=== PATIENT | male | born 1950 | race Caucasian/White ===

== ENCOUNTER 2016-08-02 08:17 | Emergency (ER) | payer OTHER ==
[~2016-08-02] VITALS: Ht 185.4 cm; Wt 108.0 kg
--- NOTE | 2016-08-02 08:32 | ED DYSPNEA/ASTHMA COMPLAINT ---
History of Present Illness General Chief Complaint: Dyspnea (COPD, CHF, Other) Stated Complaint: BIBA RESPIRATORY DISTRESS Source: family, old records, EMS Exam Limitations: unable to give history, clinical condition Vital Signs & Intake/Output Vital Signs & Intake/Output Vital Signs Date Time Temp Pulse Resp B/P B/P Pulse O2 O2 Flow FiO2 Mean Ox Delivery Rate 08/02 1100 87 98 08/02 1045 93 34 166/82 99 BIPAP 60% 08/02 1005 90 96 08/02 0900 95 44 139/98 98 BIPAP 70% 08/02 0840 101 98 08/02 0837 70 BIPAP 100% 08/02 0835 98 BIPAP 100% 08/02 0825 110 98 08/02 0824 95.7 103 30 126/78 96 BIPAP Allergies Coded Allergies: No Known Allergies (08/02/16) Reconcile Medications Amiodarone HCl 200 MG TABLET 1 TAB PO DAILY HEART (Reported) Aspirin (Aspirin*) 81 MG TAB.CHEW 1 TAB PO DAILY HEART HEALTH (Reported) Atorvastatin Calcium 40 MG TABLET 1 TAB PO DAILY CHOLESTEROL (Reported) Clopidogrel Bisulfate (Plavix) 75 MG TABLET 1 TAB PO DAILY BLOOD THINNER ( Reported) Ferrous Sulfate 325 MG (65 MG IRON) TABLET 1 TAB PO TID SUPPLMENT (Reported) Folic Acid 0.4 MG TABLET 1 TAB PO DAILY SUPPLEMENT (Reported) Glyburide/Metformin HCl (Glucovance 5-500 MG Tablet) 5 MG-500 MG TABLET 1 TAB PO BID DM (Reported) Hydrocodone/Acetaminophen ([place] 5-325 Tablet) 5 MG-325 MG TABLET 1 TAB PO Q6- PRN PRN PAIN (Reported) Lisinopril 40 MG TABLET 1 TAB PO DAILY HEART (Reported) Nadolol 20 MG TABLET 1 TAB PO DAILY HEART (Reported) [place]-3/Dha/Epa/Fish Oil (Fish Oil 1,000 MG Softgel) 1,000 MG (120 MG-180 MG) CAPSULE 1 CAP PO DAILY SUPPLEMENT (Reported) Pantoprazole Sodium 40 MG TABLET.DR 1 TAB PO DAILY GI (Reported) Triage Nurses Notes Reviewed? yes HPI: Patient presents for severe and sudden onset of shortness of breath that began this morning. The patient himself is unable to provide history and history is obtained via EMS and his . She states that this morning he began screaming that he couldn't breathe. He has past history of coronary artery disease with relatively recent stenting. Past History Travel History Traveled to [place] past 21 day No Medical History Any Pertinent Medical History? see below for history Neurological: NONE EENT: NONE Cardiovascular: CHF, hypertension, AR WITH 4 STENTS HIGH CHOLESTEROL Respiratory: NONE Gastrointestinal: GERD, PANCREATIC CANCER Hepatic: NONE Renal: NONE Musculoskeletal: NONE Psychiatric: NONE Endocrine: NONE Blood Disorders: "INTERNAL BLEEDING" PER SPOUSE Cancer(s): pancreatic cancer Surgical History Surgical History: CARDIAC STENT Psychosocial History What is your primary language Nepalese Tobacco Use: Quit >30 days ago Family History Hx Contributory? No Review of Systems Review of Systems Constitutional: Reports: no symptoms. EENTM: Reports: no symptoms. Respiratory: Reports: see HPI. Cardiovascular: Reports: no symptoms. GI: Reports: no symptoms. Genitourinary: Reports: no symptoms. Musculoskeletal: Reports: no symptoms. Skin: Reports: no symptoms. Neurological/Psychological: Reports: no symptoms. Hematologic/Endocrine: Reports: no symptoms. Immunologic/Allergic: Reports: no symptoms. All Other Systems: Reviewed and Negative Comments ROS PER , PT UNABLE TO PROVIDE Physical Exam Physical Exam Respiratory: SEE BELOW Comments: Gen.: Well-nourished, well-developed, severe respiratory distress. Head: Normocephalic, atraumatic. Eyes: Normal inspection bilaterally Ears: Normal inspection bilaterally Nose: Normal inspection Throat/mouth : Moist mucosa Neck: Supple, full range of motion, no goiter,no jvd Heart: Regular rate and rhythm, no murmurs rubs or gallops Lungs: Diminished breath sounds bilaterally with no wheezes rales or rhonchi Chest: Nontender, poor chest excursion Abdomen: Soft, nondistended Extremities: Normal range of motion grossly, equal radial pulses, no cyanosis, mild pretibial pitting edema bilaterally Neurologic: Cranial nerves grossly intact, patient essentially not focally communicative Skin: Cool and slightly diaphoretic Psychiatric: Unable to assess Core Measures ACS in differential dx? Yes Severe Sepsis Present: No Septic Shock Present: No Progress Differential Diagnosis: AMI, bronchitis, CHF, COPD, pneumonia, pneumothorax, unstable angina Plan of Care: Orders Procedure Date/time Status LACTIC ACID 08/02 1132 Active BIPAP 08/02 1100 Complete EKG 08/02 1040 Active EKG 08/02 1015 Active BIPAP 08/02 1005 Complete OXYGEN SETUP (GEN) 08/02 0955 Complete Add-on Test (ER Only) 08/02 0954 Active Admit to inpatient 08/02 0944 Active Add-on Test (ER Only) 08/02 0914 Active ARTERIAL BLOOD GAS (GEN) 08/02 0850 Complete Telemetry/Top Closer 08/02 0849 Active BIPAP 08/02 0840 Complete AEROSOL (GEN) 08/02 0835 Complete SERUM OSMOLALITY 08/02 0833 Complete B-TYPE NATRIURETIC PEP (BNP) 08/02 0833 Complete ACETONE 08/02 0833 Complete TROPONIN LEVEL 08/02 0832 Complete PARTIAL THROMBOPLASTIN TIME 08/02 0832 Complete PROTHROMBIN TIME 08/02 0832 Complete MAGNESIUM 08/02 0832 Complete LACTIC ACID 08/02 0832 Complete COMPREHENSIVE METABOLIC PANEL 08/02 0832 Complete CBC WITHOUT DIFFERENTIAL 08/03 0732 Complete EKG 08/03 0732 Active BIPAP 08/02 0825 Complete Current Medications Sig/Leonie Start time Last Medication Dose Stop Time Status Admin Aspirin 81 MG ONCE ONE 08/02 1130 UNVr (Aspirin) 08/02 113 Metoprolol Tartrate 2.5 MG ONCE ONE 08/02 1130 UNVr (Lopressor) 08/02 1131 Laboratory Tests 08/02/16 0850: pH 7.22 *L, pCO2 42, pO2 112 H, HCO3 18 L, ABG O2 Sat (Measured) 97.0, Carboxyhemoglobin 0.4 L, O2 Concentration % 70%, Respiration Rate 20, O2 Delivery Method VISION, Vent Mode ST, Expiratory Pressure 6, Inspiratory Pressure 16, Phlebotomy Draw Site RIGHT RADIAL 08/02/16 0849: Bym-Z-Esbfpvycndc Pept Cancelled 08/02/16 0833: Anion Gap 19 H, Estimated GFR > 60, BUN/Creatinine Ratio 16.0, Glucose 286 H, Serum Osmolality 313 H, Lactic Acid 4.9 H, Calcium 9.2, Magnesium 2.1, Total Bilirubin 0.8, AST 22, ALT 21, Alkaline Phosphatase 68, Troponin I 0.02, Pro-B- Natriuretic Pept 3850 H, Total Protein 7.7, Albumin 4.0, Globulin 3.7, Albumin/ Globulin Ratio 1.1, PT 12.8 H, INR 1.22 H, APTT 29, CBC w Diff MAN DIFF ORDERED, RBC 4.58 L, MCV 78.2 L, MCH 24.1 L, RDW 19.8 H, MPV 8.8, Gran % 43.2, Lymphocytes % 44.9, Monocytes % 8.6, Eosinophils % 2.7, Basophils % 0.6, Absolute Granulocytes 6.1, Absolute Lymphocytes 6.3 H, Absolute Monocytes 1.2 H, Absolute Eosinophils 0.4, Absolute Basophils 0.1, Platelet Estimate ADEQUATE, Polychromasia 1+, Hypochromic-Microcytic 2+, Poikilocytosis 3+, Anisocytosis 3+, Microcytic Cells 1+, Ovalocytes 1+, Elliptocytes 2+, Schistocytes , PUBS MCHC 30.8 L, Acetone Level NEGATIVE Diagnostic Imaging: Viewed by Me: Radiology Read. Discussed w/RAD: Radiology Read. CXR Impression: PATIENT: ZIA GILL PRESENT AGE: 65 PATIENT ACCOUNT NO: [id number] : 52 LOCATION: [facility] ORDERING PHYSICIAN: JUSTIN DONOVAN MD SERVICE DATE: 08/02/16 EXAM TYPE: RAD - XRY-PORTABLE CHEST XRAY EXAMINATION: XR PORTABLE CHEST CLINICAL INFORMATION: Shortness of breath. Low oxygen saturation. COMPARISON: None TECHNIQUE: Portable AP view of the chest was obtained. FINDINGS: Cardiomegaly, pulmonary vascular congestion and thickened peribronchial interstitium -- likely edema of the axial interstitium. Small left pleural effusion and left basilar atelectasis. A trace right pleural effusion is suspected, as well. No pneumothorax. The visualized bones are intact. IMPRESSION: Cardiomegaly and congestive heart failure. DICTATED BY: FRANCISCA MCDONOUGH MD DATE/TIME DICTATED:08/02/16901 SOFTBALL UMPIRE:MILLICENT DATE/TIME TRANSCRIBED:08/02/16901 CONFIDENTIAL, DO NOT COPY WITHOUT APPROPRIATE AUTHORIZATION. <Electronically signed in Other Vendor System> SIGNED BY: FRANCISCA MCDONOUGH MD 08/02/16905 Initial ED EKG: NSR, ST elevation (ANTERIORLY) Prior EKG: changed (C/W 2007) Comments: 08/02/2016 8:32:00 AM patient has been placed on BiPAP with improvement in oxygen saturations and chest excursion. He is becoming more alert. Oxygen saturation 95% on BiPAP. 08/02/2016 8:50:20 AM patient's EKG shows ST segment elevations anteriorly but the EKG is of poor quality due to the patient's respiratory distress. Prior EKG does not show similar changes but this EKG is from 2007. I've spoken to Dr. Collins about this patient's case will be in to the emergency department momentarily to evaluate him. 08/02/2016 8:58:43 AM Zia is now to be indicative and denies chest pain either now or during his episode of dyspnea. I suspect the EKG changes we are seeing a reflection of a bundle branch pattern more than an acute AR. 08/02/2016 9:13:50 AM patient is being evaluated by Dr. Collins. 08/02/2016 9:32:03 AM patient's case discussed with the hospitalist. Patient to be admitted. 08/02/2016 10:32:04 AM the patient is being evaluated by the house staff. Repeat EKG was obtained given the noisy baseline initially. The patient has ST segment elevations across the precordial leads along with multiple PVCs, I have discussed this with Dr. Collins who will return to the emergency department momentarily to reevaluate. 08/02/2016 11:17:37 AM we are making arrangements for Zia to be transferred to the [facility] cardiac catheterization suite. The change in his EKG here in the emergency department is very concerning for an ST segment elevation AR. Patient remains stable clinically. Departure Departure Disposition: STILL A PATIENT Condition: Stable Clinical Impression Primary Impression: AMI (acute myocardial infarction) Qualifiers: Myocardial infarction ST status: ST elevation myocardial infarction Involved coronary artery: unspecified coronary artery Qualified Code: I21.3 - ST elevation (STEMI) myocardial infarction of unspecified site Secondary Impressions: CHF (congestive heart failure) Qualifiers: Congestive heart failure type: unspecified congestive heart failure type Congestive heart failure chronicity: acute Qualified Code: I50.9 - Heart failure, unspecified Metabolic acidosis Respiratory failure Qualifiers: Chronicity: acute Respiratory failure complication: hypoxia Qualified Code: J96.01 - Acute respiratory failure with hypoxia Referrals: MARIA DE JESUS ADAIR,GEORGETTE Uribe (PCP/Family) Departure Forms: Customer Survey General Discharge Information Admission Note Spoke With: REA PATHAK MD Documentation of Exam: Documentation of any treatments & extenuating circumstances including Concerns Regarding Discharge (functional status, medication knowledge or non-compliance, living conditions, etc.) that warrant an admission rather than observation: Patient presented in severe respiratory distress and was nearly intubated. He has improved with high-level oxygen supplementation and BiPAP respiratory support. He has a complicated past medical history with a recent myocardial infarction and cardiac stent placement. In addition to his respiratory failure, he has a metabolic acidosis and hyperglycemia. Although he has improved he is still critically ill and requires hospitalization. He will need continued oxygen supplementation to maintain normal oxygen saturations, BiPAP to augment his respiratory effort and ventilation and serial troponin determinations to rule out acute myocardial infarction or demand ischemia. Intake and output and daily weights should be recorded in the patient should be kept in a negative fluid balance. Cardiology consultation should also be obtained given his complex cardiac history. I feel he will require a multiple day hospitalization. Critical Care Note Critical Care Note Critical Care Time: 75-104 min
[2016-08-02 08:42] LABS: ABSOLUTE BASOPHIL COUNT 0.1 /CUMM (0.0-0.2); ABSOLUTE EOSINOPHIL COUNT 0.4 /CUMM (0.0-0.7); ABSOLUTE GRANULOCYTE CT 6.1 /CUMM (1.4-6.5); ABSOLUTE LYMPH COUNT 6.3 /CUMM (1.2-3.4); ABSOLUTE MONOCYTE COUNT 1.2 /CUMM (0.10-0.60); RBC DISTRIBUTION WIDTH 19.8 % (11.5-14.5); WHITE BLOOD CELL COUNT 14.1 /CUMM (4.8-10.8)
[2016-08-02 08:46] LABS: BASOPHIL % 0.6 % (0.0-2.0); EOSINOPHIL % 2.7 % (0-5); GRANULOCYTE % 43.2 % (42.2-75.2); HEMATOCRIT 35.8 % (42-52); MEAN CORPUSCULAR HGB 24.1 PG (27.0-31.0); MEAN CORPUSCULAR HGB CONC 30.8 G/DL (33.0-37.0); MEAN CORPUSCULAR VOLUME 78.2 FL (80.0-94.0); MEAN PLATELET VOLUME 8.8 FL (7.4-10.4); PLATELET COUNT 346 /CUMM (130-400); RED BLOOD CELL CT 4.58 /CUMM (4.70-6.10)
[2016-08-02 08:59] LABS: PT 12.8 SEC (9.4-12.5); PTT 29 SEC (25-37)
--- NOTE | 2016-08-02 09:06 | RADIOLOGY REPORT ---
EXAMINATION: XR PORTABLE CHEST CLINICAL INFORMATION: Shortness of breath. Low oxygen saturation. COMPARISON: None TECHNIQUE: Portable AP view of the chest was obtained. FINDINGS: Cardiomegaly, pulmonary vascular congestion and thickened peribronchial interstitium -- likely edema of the axial interstitium. Small left pleural effusion and left basilar atelectasis. A trace right pleural effusion is suspected, as well. No pneumothorax. The visualized bones are intact. IMPRESSION: Cardiomegaly and congestive heart failure.
[2016-08-02] MEDS ORDERED: ASPIRIN81 M4 PO (09:36)
[2016-08-02] MEDS ORDERED: AMIODARONE HCL200 M1 PO (09:36)
[2016-08-02] MEDS ORDERED: PLAVIX75 M1 PO (09:37)
[2016-08-02] MEDS ORDERED: ATORVASTATIN CA40 M1 PO (09:37)
[2016-08-02] MEDS ORDERED: FERROUS SULFAT325 M3 PO (09:38)
[2016-08-02] MEDS ORDERED: FISH OIL 1,001000 MG PO (09:38)
[2016-08-02] MEDS ORDERED: FOLIC ACID0.4 M1 PO (09:39)
[2016-08-02] MEDS ORDERED: GLUCOVANCE 5-51 EACH PO (09:39)
[2016-08-02] MEDS ORDERED: NORCO 5-325 TA1 EACH PO (09:40)
[2016-08-02] MEDS ORDERED: LISINOPRIL40 M1 PO (09:41)
[2016-08-02] MEDS ORDERED: NADOLOL20 M1 PO (09:42)
[2016-08-02] MEDS ORDERED: PANTOPRAZOLE SO40 M1 PO (09:42)
--- NOTE | 2016-08-02 11:25 | Cons- Cardiology ---
General Information and HPI Consulting Request Date of Consult: 08/02/16 Requested By: Dr. Shahid Reason for Consult: Myocardial infarction History of Present Illness: The patient is a 65-year-old male with history of CAD, status post anterior wall myocardial infarction 3 weeks ago at [facility], ischemic cardiomyopathy, pancreatic mass, and GI bleed presenting with respiratory distress. He was recently discharged from [facility], and was feeling well until this morning when he woke up in respiratory distress. EMS was called. He was brought to [facility] because he was felt to be too unstable to be taken to [facility]. BiPAP was initiated with partial improvement in his respiratory distress. He denies any chest pain. Initial EKG showed only mild ST elevation which was felt to be residual from his recent myocardial infarction. Repeat EKG showed much more prominent ST elevation in the anterior leads. Initial troponin was negative. He continues to be severely short of breath, however towards of breath is much improved from his presentation. He continues to deny any chest discomfort. Allergies/Medications Allergies: Coded Allergies: No Known Allergies (08/02/16) Home Med List: Amiodarone HCl 200 MG TABLET 1 TAB PO DAILY HEART (Reported) Aspirin (Aspirin*) 81 MG TAB.CHEW 1 TAB PO DAILY HEART HEALTH (Reported) Atorvastatin Calcium 40 MG TABLET 1 TAB PO DAILY CHOLESTEROL (Reported) Clopidogrel Bisulfate (Plavix) 75 MG TABLET 1 TAB PO DAILY BLOOD THINNER ( Reported) Ferrous Sulfate 325 MG (65 MG IRON) TABLET 1 TAB PO TID SUPPLMENT (Reported) Folic Acid 0.4 MG TABLET 1 TAB PO DAILY SUPPLEMENT (Reported) Glyburide/Metformin HCl (Glucovance 5-500 MG Tablet) 5 MG-500 MG TABLET 1 TAB PO BID DM (Reported) Hydrocodone/Acetaminophen ([place] 5-325 Tablet) 5 MG-325 MG TABLET 1 TAB PO Q6- PRN PRN PAIN (Reported) Lisinopril 40 MG TABLET 1 TAB PO DAILY HEART (Reported) Nadolol 20 MG TABLET 1 TAB PO DAILY HEART (Reported) [place]-3/Dha/Epa/Fish Oil (Fish Oil 1,000 MG Softgel) 1,000 MG (120 MG-180 MG) CAPSULE 1 CAP PO DAILY SUPPLEMENT (Reported) Pantoprazole Sodium 40 MG TABLET.DR 1 TAB PO DAILY GI (Reported) Current Medications: Current Medications Sig/Leonie Start time Last Medication Dose Route Stop Time Status Admin Albuterol Sulfate 3 ML ONCE ONE 08/02 0845 DC 08/02 INH 08/02 0846 0835 Aspirin 81 MG ONCE ONE 08/02 1130 UNVr PO 08/02 1131 Furosemide 40 MG ONCE ONE 08/02 1015 DC 08/02 IV 08/02 1016 1018 Furosemide 0 .STK-MED ONE 08/02 1014 DC IV Ipratropium [place] 2.5 ML ONCE ONE 08/02 0845 DC 08/02 INH 08/02 0846 0835 Metoprolol Tartrate 2.5 MG ONCE ONE 08/02 1130 UNVr IV 08/02 1131 Review of Systems Review of Systems: No fever. No chills. No rash. No tremor. All other systems were reviewed, and were noted to be negative. Past History Travel History Traveled to [place] past 21 day No Medical History Neurological: NONE EENT: NONE Cardiovascular: CHF, hypertension, IN WITH 4 STENTS HIGH CHOLESTEROL Respiratory: NONE Gastrointestinal: GERD, PANCREATIC CANCER Hepatic: NONE Renal: NONE Musculoskeletal: NONE Psychiatric: NONE Endocrine: NONE Blood Disorders: "INTERNAL BLEEDING" PER SPOUSE Cancer(s): pancreatic cancer Surgical History Surgical History: CARDIAC STENT Family History Family History Reviewed? Family history was reviewed with the patient and there are no factors continuing to the current presentation. Exam & Diagnostic Data Vital Signs and I&O Vital Signs Date Time Temp Pulse Resp B/P B/P Pulse O2 O2 Flow FiO2 Mean Ox Delivery Rate 08/02 1100 87 98 08/02 1045 93 34 166/82 99 BIPAP 60% 08/02 1005 90 96 08/02 0900 95 44 139/98 98 BIPAP 70% 08/02 0840 101 98 08/02 0837 70 BIPAP 100% 08/02 0835 98 BIPAP 100% 08/02 0825 110 98 08/02 0824 95.7 103 30 126/78 96 BIPAP Intake & Output 08/02 1600 08/02 0800 08/02 0000 08/01 1600 08/01 0800 08/01 0000 Intake Total Output Total Balance Patient 238 lb Weight Weight Reported by Patient Measurement Method Physical Exam: Gen: The patient is in no acute distress HEENT: Normal nose, ears, and oropharynx. Pupils equal bilaterally. Conjunctiva normal. Neck: Supple with no JVD, no masses, and no thyromegaly Lungs: Bilateral rales with increased respiratory effort Heart: RRR, S1, S2, 1/6 systolic murmur. 1-2+ peripheral edema, 2+ pulses in the lower extremities bilaterally Abdomen: Soft, nontender, no masses. No hepatomegaly. No splenomegaly Extremities: No clubbing or cyanosis. Normal muscle strength in the upper and lower extremities Skin: Normal skin turgor with no skin ulcers or lesions noted. Neuro: Cranial nerves intact. Sensation intact Psych: Alert and oriented 3 with appropriate affect Labs/Alec Results: Laboratory Tests 08/02 08/02 0850 0849 Blood Gas pH (7.35 - 7.45 PH) 7.22 *L pCO2 (35 - 45 TORR) 42 pO2 (80 - 100 TORR) 112 H HCO3 (21 - 28 MEQ/L) 18 L ABG O2 Sat (Measured) (>96.0 %) 97.0 Carboxyhemoglobin (1.5 - 5.0 %) 0.4 L O2 Concentration % 70% Respiration Rate (BPM) 20 O2 Delivery Method VISION Vent Mode ST Expiratory Pressure (CM H2O P) 6 Inspiratory Pressure (CM H2O P) 16 Chemistry Tin-K-Jzumbroffhz Pept Cancelled Miscellaneous Phlebotomy Draw Site RIGHT RADIAL 08/02 0833 Chemistry Sodium (137 - 145 mmol/L) 141 Potassium (3.5 - 5.1 mmol/L) 4.6 Chloride (98 - 107 mmol/L) 102 Carbon Dioxide (22 - 30 mmol/L) 20 L Anion Gap (5 - 16) 19 H BUN (9 - 20 mg/dL) 16 Creatinine (0.7 - 1.2 mg/dL) 1.0 Estimated GFR (>60 ml/min) > 60 BUN/Creatinine Ratio (7 - 25 %) 16.0 Glucose (65 - 99 mg/dL) 286 H Serum Osmolality (285 - 295 MOSM/KG) 313 H Lactic Acid (0.7 - 2.1 mmol/L) 4.9 H Calcium (8.4 - 10.2 mg/dL) 9.2 Magnesium (1.6 - 2.3 mg/dL) 2.1 Total Bilirubin (0.2 - 1.3 mg/dL) 0.8 AST (17 - 59 U/L) 22 ALT (21 - 72 U/L) 21 Alkaline Phosphatase (< 127 U/L) 68 Troponin I (<0.11 ng/ml) 0.02 Zil-Y-Gxolvalxjwu Pept (<125 pg/mL) 3850 H Total Protein (6.3 - 8.2 g/dL) 7.7 Albumin (3.5 - 5.0 g/dL) 4.0 Globulin (1.9 - 4.2 gm/dL) 3.7 Albumin/Globulin Ratio (1.1 - 2.2 %) 1.1 Coagulation PT (9.4 - 12.5 SEC) 12.8 H INR (0.90 - 1.17) 1.22 H APTT (25 - 37 SEC) 29 Hematology CBC w Diff MAN DIFF ORDERED WBC (4.8 - 10.8 /CUMM) 14.1 H RBC (4.70 - 6.10 /CUMM) 4.58 L Hgb (14.0 - 18.0 G/DL) 11.0 L Hct (42 - 52 %) 35.8 L MCV (80.0 - 94.0 FL) 78.2 L MCH (27.0 - 31.0 PG) 24.1 L RDW (11.5 - 14.5 %) 19.8 H Plt Count (130 - 400 /CUMM) 346 MPV (7.4 - 10.4 FL) 8.8 Gran % (42.2 - 75.2 %) 43.2 Lymphocytes % (20.5 - 51.1 %) 44.9 Monocytes % (1.7 - 9.3 %) 8.6 Eosinophils % (0 - 5 %) 2.7 Basophils % (0.0 - 2.0 %) 0.6 Absolute Granulocytes (1.4 - 6.5 /CUMM) 6.1 Absolute Lymphocytes (1.2 - 3.4 /CUMM) 6.3 H Absolute Monocytes (0.10 - 0.60 /CUMM) 1.2 H Absolute Eosinophils (0.0 - 0.7 /CUMM) 0.4 Absolute Basophils (0.0 - 0.2 /CUMM) 0.1 Platelet Estimate (ADEQUATE) ADEQUATE Polychromasia 1+ Hypochromic-Microcytic 2+ Poikilocytosis 3+ Anisocytosis 3+ Microcytic Cells 1+ Ovalocytes 1+ Elliptocytes 2+ Schistocytes PUBS MCHC (33.0 - 37.0 G/DL) 30.8 L Toxicology Acetone Level (NEGATIVE) NEGATIVE Diagnostic Data EKG Results EKG tracings are independently reviewed. Initial EKG from 8:39 AM reveals normal sinus rhythm at [address] elevation in the anterior leads which were felt to be evolving changes from his recent myocardial infarction. Repeat EKG from 10:20 AM reveals much more significant anterior ST elevation in V3 through V5 costumer assistant with new anterior wall myocardial infarction. CXR Results Cardiomegaly and congestive heart failure. Assessment/Plan Assessment/Plan 65-year-old male with recent anterior wall myocardial infarction, newly diagnosed pancreatic cancer, ischemic cardiomyopathy, and GI bleed presenting with sudden onset respiratory distress, noted to have new anterior ST elevation. His presentation is concerning for possible thrombosis of one of the recently placed LAD stents. * The patient will be transferred emergently to [facility] for cardiac catheterization with Dr. Lozoya Consult Acknowledgment - Thank you for your consult request.
[2016-08-02 11:26] VITALS: BP 139/98
== END 2016-08-02 11:44 | disposition short-term general hospital (02) ==
LOC: ERH 08:17
PROVIDERS: Emergency Medicine
DX: I21.3 ST elevation (STEMI) myocardial infarction of unspecified site (principal); E87.2 Acidosis; I50.9 Heart failure, unspecified; J96.90 Respiratory failure, unspecified, unspecified whether with hypoxia or hypercapnia; I10 Essential (primary) hypertension; E78.00 Pure hypercholesterolemia, unspecified; Z87.891 Personal history of nicotine dependence
CPT/HCPCS: 1263; 1288; 1387; 93005; 93010; 94799; 96374; 96375; 99291; J1940; J3490